=== PATIENT | female | born 1950 | race Caucasian/White ===

== ENCOUNTER 2018-12-18 08:53 | Observation (INO) | payer MEDICARE, OTHER ==
[~2018-12-18] VITALS: Ht 165.1 cm; Wt 127.3 kg
[2018-12-18 09:20] LABS: BASOPHILS # (AUTO) 0.1 X10'3 (0-0.2); BASOPHILS % (AUTO) 0.6 % (0-1); EOSINOPHILS % (AUTO) 0.5 % (0-6); HEMATOCRIT 40.8 % (35.0-45.0); HEMOGLOBIN 13.5 g/dl (12.0-16.0); LYMPHOCYTES # (AUTO) 2.4 X10'3 (1.1-4.8); LYMPHOCYTES % (AUTO) 27.2 % (21-51); MEAN CORPUSCULAR HEMOGLOBIN 27.9 PG (27.0-31.0); MEAN CORPUSCULAR HGB CONC 33.2 g/dL (33.0-36.5); MEAN CORPUSCULAR VOLUME 84.2 FL (78-98); MEAN PLATELET VOLUME 8.1 FL (7.4-10.4); MONOCYTES # (AUTO) 0.8 X10'3 (0-0.9); MONOCYTES % (AUTO) 8.8 % (2-12); NEUTROPHILS # (AUTO) 5.5 X10'3 (1.8-7.7); NEUTROPHILS % (AUTO) 62.9 % (42-75); PLATELET COUNT 348 X10'3 (140-440); RED BLOOD COUNT 4.85 X10'6 (4.20-5.60); RED CELL DISTRIBUTION WIDTH 15.6 % (11.5-14.5); WHITE BLOOD COUNT 8.7 X10'3 (4.5-11.0)
[2018-12-18 09:34] LABS: PARTIAL THROMBOPLASTIN TIME 26 SECONDS (22-32)
[2018-12-18 09:41] LABS: ALANINE AMINOTRANSFERASE 21 U/L (12-78); ALBUMIN 3.2 G/DL (3.4-5.0); ALBUMIN/GLOBULIN RATIO 0.9 (1.1-1.5); ALKALINE PHOSPHATASE 65 IU/L (46-116); ANION GAP 8 (8-16); ASPARTATE AMINO TRANSFERASE 14 U/L (10-37); BILIRUBIN,TOTAL 0.3 MG/DL (0.1-1.0); BLOOD UREA NITROGEN 10 MG/DL (7-18); BUN/CREATININE RATIO 14.3 (6.6-38.0); CHLORIDE 107 MMOL/L (99-107); GLUCOSE 102 MG/DL (70-104); POTASSIUM 3.6 MMOL/L (3.5-5.1); SODIUM 143 MMOL/L (135-145); TOTAL CARBON DIOXIDE 28.2 MMOL/L (24-32); TOTAL PROTEIN 6.7 G/DL (6.4-8.2); eGFR 83 ML/MIN
[2018-12-18] MEDS ORDERED: morphine 2 MG/ML inj. syringe IV PRN ×2 (10:35)
[2018-12-18] MEDS ORDERED: mag hydrox/Alum hydrox/simeth 30ml oral suspension PO PRN (10:35)
[2018-12-18] MEDS ORDERED: nitroGLYCERIN 0.4mg SUBLingual tab SL PRN ×2 (10:35→11:55)
[2018-12-18] MEDS ORDERED: ondansetron/PF 4mg/2ml inj IV PRN (10:35)
[2018-12-18] MEDS ORDERED: magnesium hydroxide 30ml (MOM) UD suspension PO PRN (10:35)
[2018-12-18] MEDS ORDERED: acetaminophen 325mg tablet PO PRN (10:35)
[2018-12-18 10:55] LABS: HEMOGLOBIN A1C 5.6 % (4.5-6.2)
--- NOTE | 2018-12-18 11:19 | NUR ---
PT LEFT THE HOSPITAL. CALLED THE PATIENT AND IS STATES SHE THOUGHT THE DOCTOR SAID SHE COULD LEAVE. PT RETURNING THE ER
[2018-12-18] MEDS ORDERED: regadenoson 0.4mg/5ml syringe IV PRN (11:55)
[2018-12-18] MEDS ORDERED: aminophylline 250mg/10ml inj. IV PRN (11:55)
[2018-12-18] MEDS ORDERED: metoprolol tartrate 1mg/ml inj IV PRN (11:55)
[2018-12-18 12:06] LABS: D-DIMER 0.25 MG/L FEU (0-0.50)
--- NOTE | 2018-12-18 12:35 | NUR ---
Patient arrived to unit via gurney from ED. Patient ambulated from gurney to bed on their own. Vital signs stable, monitoring initiated, belongings placed at bedside. Patient oriented to room and call light.
[2018-12-18 13:00] VITALS: BP 132/87
[2018-12-18] MEDS ORDERED: ASPI-100 PO (13:16)
[2018-12-18] MEDS ORDERED: ACET-2615 PO (13:16)
[2018-12-18 15:00] VITALS: BP 128/85
[2018-12-18 18:00] VITALS: BP 130/78
--- NOTE | 2018-12-18 18:07 | NUR ---
Problems reprioritized. Patient report given, questions answered & plan of care reviewed with ANGELA Rich.
--- NOTE | 2018-12-18 18:07 | NUR ---
[facility]ee documentation: I have reviewed and agree with all interventions, assessments performed and documented by Norma MILLER. [facility] Medication Administration: For this medication-pass time frame, all medication were reviewed, dispensed, administered and documented per hospital policy by Norma MILLER.
[2018-12-18 22:00] VITALS: BP 126/59
[2018-12-19 02:00] VITALS: BP 139/71
[2018-12-19 06:00] VITALS: BP 143/72
--- NOTE | 2018-12-19 06:05 | NUR ---
Patient in room MED 308. I have received report from ANGELA Rich and had the opportunity to ask questions and assume patient care.
--- NOTE | 2018-12-19 06:35 | NUR ---
Problems reprioritized. Patient report given, questions answered & plan of care reviewed with Lyly MILLER and Hubert MILLER (orienteer).
[2018-12-19 06:47] LABS: CHOL/HDL RATIO 3.3 (0.00-4.99); CHOLESTEROL 206 MG/DL (0-200); HDL CHOLESTEROL 62 MG/DL (35-60); LDL CHOLESTEROL 121 MG/DL (50-100); TRIGLYCERIDES 116 MG/DL (20-135)
[2018-12-19] MEDS ORDERED: aspirin 81mg tablet.DR PO SCH (08:00)
--- NOTE | 2018-12-19 08:23 | NUR ---
laid eyes on pt. at 0630 after report was given. pt. was asleep and snoring. RN jennifer checked in on her about 0700 and stated pt. was still sleeping. noticed pt. get up and walk out to the nurses station around 0715 while in room [address] Lara rounded around 0810 on pt. and pt. was missing from room. called down to [facility] and pt. is not with them for her scheduled tino scan. called security and gave them a description of the pt.
--- NOTE | 2018-12-19 10:17 | NUR ---
pt. never returned. attempted to call number listed for her and her mailbox is not set up yet. nursing public relations account supervisor told us to discharge her AMA.
== END 2018-12-19 10:15 | disposition left against medical advice (07) ==
LOC: ER 08:54 → ED HOLD 10:31 → MED 3N 11:35
PROVIDERS: ADMIT Internal Medicine; ATTEND Internal Medicine
DX: R07.89 Other chest pain (principal); E66.01 Morbid (severe) obesity due to excess calories; F17.200 Nicotine dependence, unspecified, uncomplicated; Z98.51 Tubal ligation status; Z68.42 Body mass index [BMI] 45.0-49.9, adult
CPT/HCPCS: 36415; 71045; 80053; 80061; 83036; 83880; 84443; 84484; 85025; 85379; 85610; 85730; 93005; 96374; 99284; G0378; J2270